=== PATIENT | female | born 1945 | race Caucasian/White ===

== ENCOUNTER → 2017-05-18 | Outpatient (CLI) | payer MEDICARE, MEDICAID ==
[~2017-05-18] MED LIST: AUGMENTIN 875 M1 TAB PO; BACTRIM DS 8001 TAB PO; BENADRYL 25MG C25 MG PO; BUTALB/APAP/CAF1 TA2 PO; CEFDINIR 300MG300 MG PO; DUONEB 3 MG/3 ML3 ML IH; ESTRACE 0.5MG0.5 MG PO; KEFLEX 500MG.500 MG PO; KLONOPIN 0.5MG0.5 MG PO; LEVAQUIN 750 M750 MG PO; LORATADINE 10MG10 M1 PO; MACROBID100 M3 PO; MEDROL 4MG. DOSE4 MG PO; METHADONE10 MG PO; MIGRAINE PILL; MOTRIN800 MG PO; NORCO 325 MG-51 TAB PO; PHENERGAN VC +120 ML PO; PREDNISONE 20MG20 MG PO; PREMARIN 0.60.625 MG PO; PRILOSEC40 MG PO; TESSALON PERLE200 MG PO; TRAZODONE 50MG50 MG PO; ZITHROMAX Z-PA250 M1 PO
--- NOTE | 2017-05-18 14:36 | RADIOLOGY REPORT PS360 ---
CT HEAD W/O CONTRAST HISTORY: Severe headache HEADACHE OCCIPITAL ORDERING PHYSICIAN: Jayden Skaggs MD PATIENT AGE: 72 years COMPARISON: 11/07/2011 TECHNIQUE: Axial images obtained without contrast. Brain and bone windows reviewed. FINDINGS: There is mild generalized atrophy. There is mild prominence of the lateral ventricles. The third ventricle is slightly prominent. Fourth ventricle appears to be within normal limits. There is mild Leslie 2. Decreased attenuation is present in the periventricular region and subcortical white matter consistent with ischemic gliotic change from microvascular disease. No midline shift or mass effect is evident. No acute intracranial hemorrhage. No sinus air-fluid level or mastoid effusion. IMPRESSION: 1. There is mild prominence of the lateral and third ventricles somewhat out of context to the patient's mild generalized atrophy.. Overall the ventricles may be slightly more prominent compared to the previous exam. Consider MRI of the brain without and with contrast for more thorough evaluation. 2. Mild atrophy with chronic ischemic change.
== END ==
LOC: RAD 13:00
DX: R51 Headache (principal)